=== PATIENT | male | born 1985 | race Caucasian/White ===

== ENCOUNTER 2021-09-15 15:27 | Emergency (ER) | payer BC, OTHER ==
[~2021-09-15] VITALS: Ht 190.5 cm; Wt 88.5 kg
[2021-09-15] MEDS ORDERED: IOHEXOL-350 100 ML VIAL IV ONE ×2 (15:48→15:50)
[2021-09-15] MEDS ORDERED: IV NS 0.9% 0 ML IV ONE (15:49)
[2021-09-15] MEDS ORDERED: IV NS 0.9% 250 ML IV ONE (15:50)
[2021-09-15] MEDS ORDERED: CT SWABBABLE VALVE TRANS SET 1 EA INFUS.SET MC ONE (15:50)
[2021-09-15 15:53] LABS: BASOPHILS % (AUTO) 0.7 % (0.0-2.0); EOSINOPHILS % (AUTO) 1.8 % (0.0-6.0); HEMATOCRIT 46 % (39-51); HEMOGLOBIN 15.7 g/dL (13.5-17.5); LYMPHOCYTES % (AUTO) 27.7 % (20.0-44.0); MEAN CORPUSCULAR HGB CONC 34 g/dl (31.0-36.0); MEAN CORPUSCULAR VOLUME 91 fL (80-96); MONOCYTES # (AUTO) 0.8 K/uL (0.1-1.30); NEUTROPHILS # (AUTO) 4.2 K/uL (1.8-8.9); NEUTROPHILS % (AUTO) 58.8 % (43.0-81.0); PLATELET COUNT (AUTO) 252 K/uL (150-450); RED BLOOD CELL COUNT(AUTO) 5.04 MIL/uL (4.5-6.0); WHITE BLOOD COUNT (AUTO) 7.2 K/uL (4.3-11.0)
[2021-09-15 16:03] LABS: CALCIUM, SERUM 9.4 mg/dL (8.5-10.1); CARBON DIOXIDE 30 mmol/L (21-32); CHLORIDE 101 mmol/L (98-107); CREATININE 1.1 mg/dL (0.6-1.3); GLUCOSE 90 mg/dL (74-106); POTASSIUM 3.9 mmol/L (3.5-5.1); SODIUM SERUM 140 mmol/L (136-145); UREA NITROGEN, BLOOD 14 mg/dL (7-18)
[2021-09-15] MEDS ORDERED: ACETAMINOPHEN ES 500 MG TABLET ONE (16:08)
[2021-09-15] MEDS ORDERED: diphenhydrAMINE HCL 50 MG/ML VIAL ONE (16:08)
[2021-09-15] MEDS ORDERED: DEXAMETHASONE SOD PHOSPHATE 10 MG/ML VIAL ONE (16:08)
[2021-09-15] MEDS ORDERED: METOCLOPRAMIDE HCL 10 MG/2 ML VIAL ONE (16:08)
[2021-09-15] MEDS: DEXAMETHASONE SOD PHOSPHATE 10 MG/ML VIAL IV ONE (16:15)
[2021-09-15] MEDS: diphenhydrAMINE HCL 50 MG/ML VIAL IV ONE (16:15)
[2021-09-15] MEDS: IV NS 0.9% 1,000 ML BAG IV ONE (16:16)
[2021-09-15] MEDS: ACETAMINOPHEN ES 500 MG TABLET PO ONE (16:18)
[2021-09-15] MEDS: METOCLOPRAMIDE HCL 10 MG/2 ML VIAL IV ONE (16:18)
[2021-09-15] MEDS ORDERED: BUPR300T52 PO (16:53)
[2021-09-15] MEDS ORDERED: PROPRANOLOL (16:53)
[2021-09-15 18:36] VITALS: BP 127/71
== END 2021-09-15 18:36 | disposition home or self-care (01) ==
LOC: ER 15:30
DX: R20.2 Paresthesia of skin (principal); F41.9 Anxiety disorder, unspecified; F32.A Depression, unspecified; Z79.899 Other long term (current) drug therapy
CPT/HCPCS: 36415; 70450-TC; 70496-TC; 70498-TC; 71045-TC; 80048-TC; 82962-TC; 84484-TC; 85025-TC; 85730-TC; J1100; J1200; J2765; J7030; J7050; Q9967